=== PATIENT | male | born 2000 | race Two or more races ===

== ENCOUNTER 2024-12-01 16:05 | Inpatient (IN) | payer OTHER ==
[~2024-12-01] VITALS: Ht 170.2 cm; Wt 71.2 kg
[2024-12-01 16:20] LABS: BASOPHILS % (AUTO) 0.6 % (0.0-2.0); HEMATOCRIT 36.5 % (36.7-47.1); HEMOGLOBIN 12.4 g/dL (12.5-16.3); LYMPHOCYTES # (AUTO) 0.5 K/uL (0.8-4.8); LYMPHOCYTES % (AUTO) 6.9 % (20.5-51.5); MEAN CORPUSCULAR HEMOGLOBIN 32.4 uug (23.8-33.4); MEAN CORPUSCULAR HGB CONC 34 g/dL (32.5-36.3); MEAN CORPUSCULAR VOLUME 95.1 fL (73.0-96.2); MONOCYTES # (AUTO) 0.2 K/uL (0.1-1.30); MONOCYTES % (AUTO) 3.3 % (0.0-11.0); NEUTROPHILS # (AUTO) 6.3 K/uL (1.8-8.9); NEUTROPHILS % (AUTO) 89.2 % (38.5-71.5); PLATELET COUNT (AUTO) 161 K/uL (152-348); RED BLOOD CELL COUNT(AUTO) 3.84 MIL/uL (4.06-5.63); RED CELL DISTRIBUTION WIDTH 14.1 % (12.1-16.2); WHITE BLOOD COUNT (AUTO) 7.1 K/uL (3.6-10.2)
[2024-12-01 16:29] LABS: DIFFERENTIAL COMMENT 1
[2024-12-01 16:31] LABS: AMMONIA 82 umol/L (11-32)
[2024-12-01 16:36] LABS: ALANINE AMINOTRANSFERASE 24 U/L (16-63); ALBUMIN 4.1 g/dL (3.4-5.0); ALKALINE PHOSPHATASE 98 U/L (50-136); ASPARTATE AMINOTRANSFERASE 40 U/L (15-37); BILIRUBIN,DIRECT 0.4 mg/dL (0.0-0.2); CALCIUM 8.6 mg/dL (8.5-10.1); CHLORIDE 99 mmol/L (98-107); POTASSIUM 3.7 mmol/L (3.5-5.1); SODIUM SERUM 137 mmol/L (136-145); TOTAL PROTEIN, SERUM 7.6 g/dL (6.4-8.2)
[2024-12-01] MEDS ORDERED: METOCLOPRAMIDE HCL 10 MG/2 ML VIAL ONE (16:40)
[2024-12-01] MEDS ORDERED: PHENOBARBITAL SODIUM 130 MG/1 ML DISP.SYRIN ONE (16:41)
[2024-12-01] MEDS: PHENOBARBITAL SODIUM 130 MG/1 ML DISP.SYRIN IV ONE (16:41)
[2024-12-01 16:43] LABS: ETHANOL < 3 MG/DL (0-10)
[2024-12-01] MEDS: METOCLOPRAMIDE HCL 10 MG/2 ML VIAL IV ONE (16:45)
[2024-12-01 16:46] LABS: BILIRUBIN,TOTAL 1.3 mg/dL (0.2-1.0); CARBON DIOXIDE 20 mmol/L (21-32); GLUCOSE 134 mg/dL (74-106); UREA NITROGEN, BLOOD 5 mg/dL (7-18)
[2024-12-01 16:47] LABS: ACETAMINOPHEN < 2.0 ug/mL (10-30)
[2024-12-01 17:08] LABS: THYROID STIMULATING HORMONE 1.079 mIU/mL (0.358-3.740)
[2024-12-01 18:31] LABS: *BILIRUBIN,URIN NEGATIVE (NEGATIVE); *BLOOD, URINE 1+ (NEGATIVE); *CLARITY,URINE CLEAR (CLEAR); *KETONES,URINE 3+ (NEGATIVE); *PROTEIN,URINE 3+ (NEGATIVE); LEUKOCYTE ESTERASE ,URINE NEGATIVE (NEGATIVE); NITRITE, URINE NEGATIVE (NEGATIVE); PH,URINE 6.5 (5.0-8.0); UGLUCOSE NEGATIVE (NEGATIVE)
[2024-12-01] MEDS ORDERED: ONDANSETRON 4 MG/2 ML VIAL IV PRN (18:45)
[2024-12-01] MEDS ORDERED: MAGNESIUM HYDROXIDE 30 ML LIQUID UDC PO PRN (18:45)
[2024-12-01] MEDS ORDERED: REMEDY ESSENTIAL ZINC PASTE 113 GM TP PRN (18:45)
[2024-12-01 18:46] LABS: *COLOR,URINE DARK YELLOW (YELLOW)
[2024-12-01 18:56] LABS: BACTERIA,URINE NONE SEEN /HPF (NONE SEEN); RBC,URINE 0-3 /HPF (0-3); SQUAMOUS EPITHELIAL CELL,UR FEW /HPF (NONE SEEN); WBC,URINE 0-3 /HPF (0-3)
[2024-12-01 18:58] LABS: *AMPHETAMINE, URINE NEGATIVE (NEGATIVE); *BARBITURATE, URINE NEGATIVE (NEGATIVE); *BENZODIAZEPINE, URINE NEGATIVE (NEGATIVE); *CANNABINOID, URINE NEGATIVE (NEGATIVE); *COCCAINE, URINE NEGATIVE (NEGATIVE); *OPIATE, URINE NEGATIVE (NEGATIVE); *PHENCYCLIDINE SCREEN,URINE NEGATIVE (NEGATIVE); FENTANYL, URINE NEGATIVE (NEGATIVE)
[2024-12-01] MEDS ORDERED: levETIRAcetam 500 MG/5 ML VIAL IV ONE (20:43)
[2024-12-01 21:00] VITALS: BP 129/79; TEMP 99.4; O2SAT 99
[2024-12-01] MEDS: DOCUSATE SODIUM 100 MG CAPSULE PO SCH (21:26)
[2024-12-01] MEDS: levETIRAcetam IV 1,000 MG in IV DEXTROSE 5% 100 ML IV SCH (21:45)
[2024-12-02 06:00] VITALS: BP 125/92; TEMP 97.9; O2SAT 98
[2024-12-02] MEDS: PANTOPRAZOLE SODIUM 40 MG TABLET.DR PO SCH (06:16)
[2024-12-02 07:13] LABS: BASOPHILS # (AUTO) 0.1 K/UL (0.0-0.2); BASOPHILS % (AUTO) 1.4 % (0.0-2.0); EOSINOPHILS % (AUTO) 0.8 % (0.0-7.0); HEMATOCRIT 39.1 % (36.7-47.1); HEMOGLOBIN 13.3 g/dL (12.5-16.3); LYMPHOCYTES # (AUTO) 0.8 K/uL (0.8-4.8); LYMPHOCYTES % (AUTO) 19.7 % (20.5-51.5); MEAN CORPUSCULAR HEMOGLOBIN 32.3 uug (23.8-33.4); MEAN CORPUSCULAR HGB CONC 34 g/dL (32.5-36.3); MEAN CORPUSCULAR VOLUME 94.7 fL (73.0-96.2); MONOCYTES # (AUTO) 0.4 K/uL (0.1-1.30); MONOCYTES % (AUTO) 8.7 % (0.0-11.0); NEUTROPHILS # (AUTO) 2.9 K/uL (1.8-8.9); NEUTROPHILS % (AUTO) 69.4 % (38.5-71.5); PLATELET COUNT (AUTO) 143 K/uL (152-348); RED BLOOD CELL COUNT(AUTO) 4.13 MIL/uL (4.06-5.63); RED CELL DISTRIBUTION WIDTH 14.3 % (12.1-16.2); WHITE BLOOD COUNT (AUTO) 4.2 K/uL (3.6-10.2)
[2024-12-02 07:36] LABS: DIFFERENTIAL COMMENT 1
[2024-12-02 07:50] LABS: AMMONIA 24 umol/L (11-32)
[2024-12-02 08:20] LABS: ALANINE AMINOTRANSFERASE 23 U/L (16-63); ALKALINE PHOSPHATASE 105 U/L (50-136); ASPARTATE AMINOTRANSFERASE 39 U/L (15-37); BILIRUBIN,DIRECT 0.6 mg/dL (0.0-0.2); BILIRUBIN,TOTAL 2.3 mg/dL (0.2-1.0); CALCIUM 8.9 mg/dL (8.5-10.1); CARBON DIOXIDE 25 mmol/L (21-32); CHLORIDE 98 mmol/L (98-107); CREATININE 0.7 mg/dL (0.6-1.3); GLUCOSE 71 mg/dL (74-106); PHOSPHOROUS 3.5 mg/dL (2.5-4.9); POTASSIUM 3.4 mmol/L (3.5-5.1); SODIUM SERUM 137 mmol/L (136-145); TOTAL PROTEIN, SERUM 7.9 g/dL (6.4-8.2); UREA NITROGEN, BLOOD 5 mg/dL (7-18)
[2024-12-02] MEDS: CHLORDIAZEPOXIDE HCL 25 MG CAPSULE PO SCH (10:38)
[2024-12-02] MEDS: POTASSIUM CHLORIDE 20 MEQ TAB.PRT.SR PO ONE (10:38)
[2024-12-02 11:13] VITALS: BP 117/90; TEMP 98.2; O2SAT 100
[2024-12-02] MEDS ORDERED: POTASSIUM CHLORIDE 20 MEQ TAB.PRT.SR PO ONE (12:00)
[2024-12-02 15:55] VITALS: BP 113/79; TEMP 99; O2SAT 99
[2024-12-02] MEDS: ACETAMINOPHEN 325 MG TABLET PO PRN (16:33)
[2024-12-02 19:25] VITALS: BP 117/75; TEMP 99.3; O2SAT 99
[2024-12-02] MEDS: levETIRAcetam 500 MG TABLET PO SCH (21:09)
[2024-12-03] MEDS: LORAZEPAM 2 MG/1 ML VIAL IM PRN ×2 (00:44→21:52)
[2024-12-03 02:30] VITALS: BP 134/64; TEMP 98.5; O2SAT 99
[2024-12-03] MEDS: LORAZEPAM 2 MG/1 ML VIAL IV PRN (03:13)
[2024-12-03 05:13] VITALS: BP 126/83; TEMP 98.2; O2SAT 100
[2024-12-03 06:51] LABS: BASOPHILS % (AUTO) 0.8 % (0.0-2.0); EOSINOPHILS % (AUTO) 0.3 % (0.0-7.0); HEMATOCRIT 37.6 % (36.7-47.1); LYMPHOCYTES # (AUTO) 0.5 K/uL (0.8-4.8); MEAN CORPUSCULAR HGB CONC 35 g/dL (32.5-36.3); MEAN CORPUSCULAR VOLUME 95.4 fL (73.0-96.2); MONOCYTES # (AUTO) 0.5 K/uL (0.1-1.30); MONOCYTES % (AUTO) 9.6 % (0.0-11.0); NEUTROPHILS # (AUTO) 4.4 K/uL (1.8-8.9); NEUTROPHILS % (AUTO) 80.3 % (38.5-71.5); PLATELET COUNT (AUTO) 138 K/uL (152-348); RED BLOOD CELL COUNT(AUTO) 3.94 MIL/uL (4.06-5.63); RED CELL DISTRIBUTION WIDTH 13.7 % (12.1-16.2); WHITE BLOOD COUNT (AUTO) 5.5 K/uL (3.6-10.2)
[2024-12-03 07:04] LABS: ALBUMIN 4.1 g/dL (3.4-5.0); BILIRUBIN,DIRECT 0.3 mg/dL (0.0-0.2); BILIRUBIN,TOTAL 0.8 mg/dL (0.2-1.0); CREATININE 0.9 mg/dL (0.6-1.3); DIFFERENTIAL COMMENT 1; POTASSIUM 4.3 mmol/L (3.5-5.1); TOTAL PROTEIN, SERUM 7.9 g/dL (6.4-8.2)
[2024-12-03] MEDS ORDERED: LORAZEPAM 2 MG/1 ML VIAL IV PRN (07:30)
[2024-12-03] MEDS ORDERED: risperiDONE 0.25 MG TABLET PO SCH (12:54)
[2024-12-03] MEDS ORDERED: HALOPERIDOL LACTATE 5 MG/1 ML VIAL IM PRN (13:15)
[2024-12-03] MEDS: risperiDONE 1 MG TABLET PO SCH (13:22)
[2024-12-03 19:10] VITALS: BP 119/75; TEMP 98.5; O2SAT 99
[2024-12-04 07:10] LABS: BASOPHILS % (AUTO) 0.7 % (0.0-2.0); EOSINOPHILS % (AUTO) 0.5 % (0.0-7.0); HEMATOCRIT 33.3 % (36.7-47.1); HEMOGLOBIN 11.9 g/dL (12.5-16.3); LYMPHOCYTES % (AUTO) 21.4 % (20.5-51.5); MEAN CORPUSCULAR HEMOGLOBIN 33.5 uug (23.8-33.4); MEAN CORPUSCULAR HGB CONC 36 g/dL (32.5-36.3); MEAN CORPUSCULAR VOLUME 93.9 fL (73.0-96.2); MONOCYTES # (AUTO) 0.7 K/uL (0.1-1.30); MONOCYTES % (AUTO) 14.3 % (0.0-11.0); NEUTROPHILS % (AUTO) 63.1 % (38.5-71.5); PLATELET COUNT (AUTO) 124 K/uL (152-348); RED BLOOD CELL COUNT(AUTO) 3.54 MIL/uL (4.06-5.63); RED CELL DISTRIBUTION WIDTH 14.3 % (12.1-16.2); WHITE BLOOD COUNT (AUTO) 4.8 K/uL (3.6-10.2)
[2024-12-04 07:15] LABS: CALCIUM 9.5 mg/dL (8.5-10.1); CREATININE 0.8 mg/dL (0.6-1.3); POTASSIUM 3.3 mmol/L (3.5-5.1)
[2024-12-04 07:37] LABS: DIFFERENTIAL COMMENT 1
[2024-12-04 08:00] VITALS: BP 132/87; TEMP 98.5; O2SAT 97
[2024-12-04] MEDS: POTASSIUM CHLORIDE 10 MEQ TAB.PRT.SR PO ONE (10:03)
[2024-12-04 13:26] VITALS: BP 123/78; TEMP 97.8; O2SAT 99
[2024-12-04 19:00] VITALS: BP 126/94; TEMP 98.8; O2SAT 97
[2024-12-05 06:29] LABS: EOSINOPHILS # (AUTO) 0.1 K/uL (0.0-0.7); EOSINOPHILS % (AUTO) 2.4 % (0.0-7.0); HEMOGLOBIN 14.4 g/dL (12.5-16.3); LYMPHOCYTES # (AUTO) 1.5 K/uL (0.8-4.8); LYMPHOCYTES % (AUTO) 35.4 % (20.5-51.5); MEAN CORPUSCULAR HEMOGLOBIN 32.2 uug (23.8-33.4); MEAN CORPUSCULAR HGB CONC 34 g/dL (32.5-36.3); MONOCYTES # (AUTO) 0.9 K/uL (0.1-1.30); MONOCYTES % (AUTO) 21.4 % (0.0-11.0); NEUTROPHILS # (AUTO) 1.7 K/uL (1.8-8.9); NEUTROPHILS % (AUTO) 39.8 % (38.5-71.5); PLATELET COUNT (AUTO) 167 K/uL (152-348); RED BLOOD CELL COUNT(AUTO) 4.48 MIL/uL (4.06-5.63); RED CELL DISTRIBUTION WIDTH 14.6 % (12.1-16.2); WHITE BLOOD COUNT (AUTO) 4.2 K/uL (3.6-10.2)
[2024-12-05 06:44] LABS: CALCIUM 9.6 mg/dL (8.5-10.1); CARBON DIOXIDE 26 mmol/L (21-32); CHLORIDE 105 mmol/L (98-107); CREATININE 0.7 mg/dL (0.6-1.3); GLUCOSE 88 mg/dL (74-106); POTASSIUM 3.5 mmol/L (3.5-5.1); SODIUM SERUM 143 mmol/L (136-145); UREA NITROGEN, BLOOD 3 mg/dL (7-18)
[2024-12-05 07:05] LABS: DIFFERENTIAL COMMENT 1
[2024-12-05 11:08] LABS: EOSINOPHILS % (MANUAL) 3 % (0-8); LYMPHOCYTES % (MANUAL) 44 % (20-40); MONOCYTES % (MANUAL) 16 % (2-10); NEUTROPHILS % (MANUAL) 37 % (42-75); PLATELET ESTIMATE ADEQUATE
[2024-12-05 19:49] VITALS: BP 113/79; TEMP 98; O2SAT 99
[2024-12-06 06:13] VITALS: BP 100/67; TEMP 97.6; O2SAT 99
[2024-12-06 06:33] LABS: BASOPHILS % (AUTO) 1.1 % (0.0-2.0); EOSINOPHILS # (AUTO) 0.1 K/uL (0.0-0.7); EOSINOPHILS % (AUTO) 4.3 % (0.0-7.0); HEMATOCRIT 40.8 % (36.7-47.1); HEMOGLOBIN 14.1 g/dL (12.5-16.3); LYMPHOCYTES # (AUTO) 1.4 K/uL (0.8-4.8); LYMPHOCYTES % (AUTO) 45.6 % (20.5-51.5); MEAN CORPUSCULAR HEMOGLOBIN 33.1 uug (23.8-33.4); MEAN CORPUSCULAR HGB CONC 35 g/dL (32.5-36.3); MEAN CORPUSCULAR VOLUME 95.6 fL (73.0-96.2); MONOCYTES # (AUTO) 0.6 K/uL (0.1-1.30); MONOCYTES % (AUTO) 19.7 % (0.0-11.0); NEUTROPHILS # (AUTO) 0.9 K/uL (1.8-8.9); NEUTROPHILS % (AUTO) 29.3 % (38.5-71.5); PLATELET COUNT (AUTO) 181 K/uL (152-348); RED BLOOD CELL COUNT(AUTO) 4.27 MIL/uL (4.06-5.63); RED CELL DISTRIBUTION WIDTH 14.7 % (12.1-16.2); WHITE BLOOD COUNT (AUTO) 3.1 K/uL (3.6-10.2)
[2024-12-06 06:44] LABS: CALCIUM 9.1 mg/dL (8.5-10.1); CARBON DIOXIDE 27 mmol/L (21-32); CHLORIDE 101 mmol/L (98-107); CREATININE 0.7 mg/dL (0.6-1.3); GLUCOSE 93 mg/dL (74-106); POTASSIUM 3.4 mmol/L (3.5-5.1); UREA NITROGEN, BLOOD 6 mg/dL (7-18)
[2024-12-06 06:55] LABS: DIFFERENTIAL COMMENT 1
[2024-12-06 07:24] VITALS: BP 98/64; TEMP 98; O2SAT 100
[2024-12-06 08:34] LABS: BASOPHILS % (MANUAL) 1 % (0-2); EOSINOPHILS % (MANUAL) 4 % (0-8); LYMPHOCYTES % (MANUAL) 46 % (20-40); MONOCYTES % (MANUAL) 20 % (2-10); NEUTROPHILS % (MANUAL) 29 % (42-75); PLATELET ESTIMATE ADEQUATE
[2024-12-06] MEDS ORDERED: RISP1TAB7 PO (10:22)
[2024-12-06 12:00] VITALS: BP 100/65; TEMP 97.9; O2SAT 100
[2024-12-06 12:10] LABS: SODIUM SERUM 141 mmol/L (136-145)
[2024-12-06] MEDS: POTASSIUM CHLORIDE 20 MEQ TAB.PRT.SR PO ONE (12:26)
[2024-12-06 16:00] VITALS: BP 96/56; TEMP 98.9; O2SAT 100
[2024-12-06 18:55] VITALS: BP 103/59; TEMP 98.2; O2SAT 100
[2024-12-06] MEDS: CHLORDIAZEPOXIDE HCL 25 MG CAPSULE PO SCH (21:24)
[2024-12-07 06:00] VITALS: BP 92/54; TEMP 97.8; O2SAT 100
[2024-12-07 07:15] LABS: CALCIUM 8.9 mg/dL (8.5-10.1); CARBON DIOXIDE 26 mmol/L (21-32); CHLORIDE 105 mmol/L (98-107); CREATININE 0.7 mg/dL (0.6-1.3); GLUCOSE 78 mg/dL (74-106); MAGNESIUM 2.1 mg/dL (1.8-2.4); SODIUM SERUM 143 mmol/L (136-145); UREA NITROGEN, BLOOD 4 mg/dL (7-18)
[2024-12-07 08:00] VITALS: BP 103/63; TEMP 98.4; O2SAT 100
[2024-12-07] MEDS ORDERED: HALOPERIDOL LACTATE 5 MG/1 ML VIAL IM PRN (12:00)
[2024-12-07] MEDS ORDERED: LORAZEPAM 2 MG/1 ML VIAL IM PRN (12:00)
[2024-12-07] MEDS: THIAMINE HCL 100 MG TABLET PO SCH (13:34)
[2024-12-07] MEDS: FOLIC ACID 1 MG TABLET PO SCH (13:34)
[2024-12-07 15:11] VITALS: BP 102/57; TEMP 98.2; O2SAT 100
[2024-12-07 20:07] VITALS: BP 110/62; TEMP 98.3; O2SAT 100
[2024-12-07] MEDS: CHLORDIAZEPOXIDE HCL 25 MG CAPSULE PO SCH (21:12)
[2024-12-08 06:04] VITALS: BP 105/57; TEMP 97.8; O2SAT 100
[2024-12-08 11:09] VITALS: BP 111/50; TEMP 97.6; O2SAT 100
[2024-12-08 15:20] VITALS: BP 109/61; TEMP 98.3; O2SAT 100
[2024-12-08 19:20] VITALS: BP 101/65; TEMP 98.5; O2SAT 100
[2024-12-08 19:50] VITALS: BP 101/65; TEMP 98.5; O2SAT 100
[2024-12-09 05:59] VITALS: BP 91/58; TEMP 97.5; O2SAT 100
[2024-12-09 06:08] VITALS: BP 100/61; TEMP 97.5; O2SAT 100
== END 2024-12-09 12:50 | disposition home or self-care (01) | DRG 53 ==
LOC: ER 16:05 → MEDSURG3 18:30
PROVIDERS: ADMIT Nurse Practitioner Family; ATTEND Nurse Practitioner Family
DX: R56.9 Unspecified convulsions (principal); F10.231 Alcohol dependence with withdrawal delirium; E72.20 Disorder of urea cycle metabolism, unspecified; K70.9 Alcoholic liver disease, unspecified; D63.8 Anemia in other chronic diseases classified elsewhere; Z78.1 Physical restraint status; Y90.0 Blood alcohol level of less than 20 mg/100 ml; Z91.51 Personal history of suicidal behavior; Z81.8 Family history of other mental and behavioral disorders; E87.6 Hypokalemia; Z91.199 Patient's noncompliance with other medical treatment and regimen due to unspecified reason; F29 Unspecified psychosis not due to a substance or known physiological condition; E11.65 Type 2 diabetes mellitus with hyperglycemia; Z59.01 Sheltered homelessness; F32.A Depression, unspecified
CPT/HCPCS: 36415; 70450; 71045; 83735; 84100; 84443; 84484; 85025; 85730; A4606; A4663; G0378; G0480; J1953; J2060; J2560; J2765